=== PATIENT | female | born 1990 | race Caucasian/White ===

== ENCOUNTER 2018-07-08 14:21 | Emergency (ER) | payer BC, OTHER ==
[2018-07-08 14:26] VITALS: BP 121/70; PULSE 60; TEMP 98.8; BMI 31.6
--- NOTE | 2018-07-08 15:18 | PDOC ---
History of Present Illness - General Chief Complaint: Pain Stated Complaint: ABD PAIN Time Seen by Provider: 07/08/18 15:11 - History of Present Illness Initial Comments: 07/08/18 15:17 27 yo F with no significant pmh who p/w vomiting, epigastria abdominal pain. Patient reports acute onset of sharp, fluctuating, non pleuritic, epigastria abdominal pain beginning (07/05/2018). Asscoiated with 2 days of NBNB emesis, now resolved. Endorses nausea, decreased appetite, and decreased PO intake. Abdominal pain worse with supine positioning, and PO intake. Last BM (07/05/18) with absent BPR. Denies abdominal trauma. Patient denies LOPEZ, vision change, palpitations, cough, wheezing, orthopena, PND , leg swelling/pain, F,C, CP, SOB, urinary complaints, hematuria, BPR, diarrhea , lightheadedness, weakness, sensory changes. PMHx: as noted above. Denies h/o endoscopy, chronic NSAID use. Does not f/w GI. Surgical: Denies abdominal surgery ROS: as noted SHx: Denies Etoh, IVDA, tobacco use Allergies: NKDA Past History - Past Medical History Allergies/Adverse Reactions: Allergies Allergy/AdvReac Type Severity Reaction Status Date / Time No Known Allergies Allergy Verified 07/08/18 14:26 Home Medications: Ambulatory Orders Famotidine [Pepcid -] 20 mg PO BID #14 tablet 07/08/18 Ondansetron [Ondansetron Odt] 8 mg PO PRN PRN #14 tab.rapdis 07/08/18 COPD: No - Suicide/Smoking/Psychosocial Hx Smoking History: Never smoked Review of Systems - Review of Systems Comments:: 07/08/18 15:17 GENERAL/CONSTITUTIONAL: No fever or chills. No weakness. HEAD, EYES, EARS, NOSE AND THROAT: No change in vision. No ear pain or discharge. No sore throat. CARDIOVASCULAR: No chest pain or shortness of breath RESPIRATORY: No cough, wheezing, or hemoptysis. GASTROINTESTINAL: + Abodminal pain, nausea, vomiting. No diarrhea. GENITOURINARY: No dysuria, frequency, or change in urination. MUSCULOSKELETAL: No joint or muscle swelling or pain. No neck or back pain. SKIN: No rash NEUROLOGIC: No headache, vertigo, loss of consciousness, or change in strength/ sensation. ENDOCRINE: No increased thirst. No abnormal weight change HEMATOLOGIC/LYMPHATIC: No anemia, easy bleeding, or history of blood clots. ALLERGIC/IMMUNOLOGIC: No hives or skin allergy. *Physical Exam - Vital Signs Last Vital Signs Temp Pulse Resp BP Pulse Ox 98.8 F 60 18 121/70 98 07/08/18 14:23 07/08/18 14:23 07/08/18 14:23 07/08/18 14:23 07/08/18 14:23 - Physical Exam Comments: 07/08/18 15:17 GENERAL: Awake, alert, and fully oriented, in no acute distress HEAD: No signs of trauma, normocephalic, atraumatic EYES: PERRLA, EOMI, sclera anicteric, conjunctiva clear ENT: Hearing grossly normal, nares patent, oropharynx clear without exudates. Moist mucosa NECK: Normal ROM, supple, no lymphadenopathy, JVD, or masses LUNGS: No distress, speaks full sentences, clear to auscultation bilaterally HEART: Regular rate and rhythm, normal S1 and S2, no murmurs, rubs or gallops, peripheral pulses normal and equal bilaterally. ABDOMEN: + Epigastria tpp. Soft, NDS, normoactive bowel sounds. No guarding, no rebound. No masses. Neg CVA ttp. EXTREMITIES : Normal inspection, Normal range of motion, no edema. No clubbing or cyanosis. NEUROLOGICAL: Cranial nerves II through XII grossly intact. Normal speech, normal gait, no focal sensorimotor deficits SKIN: Warm, Dry, normal turgor, no rashes or lesions noted Moderate Sedation - Procedure Monitoring Vital Signs: Procedure Monitoring Vital Signs Temperature 98.8 F 07/08/18 14:23 Pulse Rate 60 07/08/18 14:23 Respiratory Rate 18 07/08/18 14:23 Blood Pressure 121/70 07/08/18 14:23 O2 Sat by Pulse Oximetry (%) 98 07/08/18 14:23 ED Treatment Course - LABORATORY CBC & Chemistry Diagram: 07/08/18 16:00 07/08/18 16:00 Medical Decision Making - Medical Decision Making 07/08/18 15:17 27 yo F with no significant pmh who p/w vomiting, and epigastric abdominal pain beginning 07/05/18. Vitals wnl, AF, A&Ox3. + epigatsria abdominal pain. + Dry mucous membranes. DDx: esophagitis, gastritis, biliary dz. pancreatitis, PUD, gastroenteritis. Will provide antiemetic, analgesic, IVF control, and reassess. ED Course: 07/08/18 15:32 Maloox, Carafate, Tylenol, Famotidine, Zofran, NS 07/08/18 16:53 CBC,CMP: Unremarkable Lipase: Neg Serum Preg: Neg *DC/Admit/Observation/Transfer Diagnosis at time of Disposition: Epigastric abdominal pain - Discharge Dispostion Condition at time of disposition: Stable Decision to Admit order: No - Prescriptions Prescriptions: Famotidine [Pepcid -] 20 mg PO BID #14 tablet Ondansetron [Ondansetron Odt] 8 mg PO PRN PRN #14 tab.rapdis PRN Reason: Nausea - Referrals Referrals: Martina Triplett MD [Primary Care Provider] - Edenilson Kitchen MD [Staff Physician] - - Patient Instructions Printed Discharge Instructions: DI for Abdominal Pain-Adult Additional Instructions: Please return to the emergency department with any new or worsening symptoms or concerns. Please follow up with your primary care physician within 72 hours. Please follow up with gastroenterology within one week. Take Zofran, and Pepcid as needed for symptom relief. - Post Discharge Activity - Attestations Physician Attestion: 07/08/18 15:18 I attest to the information provided in this note.
[2018-07-08] MEDS ORDERED: SODIUM CHLORIDE 1,000 ML IV STA (15:27)
[2018-07-08] MEDS ORDERED: FAMOTIDINE 20 MG/50 ML IVPB 20 MG/50 ML MG IVPB ONE ×2 (15:27→15:50)
[2018-07-08] MEDS ORDERED: MAG HYDROX/AL HYDROX/SIMETH 30 ML UNIT-DOSE CUP PO ONE (15:27)
[2018-07-08] MEDS ORDERED: ACETAMINOPHEN 1000 MG/100 ML VIAL (NON FORMULARY) IVPB ONE (15:27)
[2018-07-08] MEDS ORDERED: SUCRALFATE 1 GM/10 ML UNIT DOSE CUPS PO ONE (15:27)
[2018-07-08] MEDS ORDERED: ONDANSETRON 4 MG/2 ML VIAL IVPB ONE (15:27)
[2018-07-08] MEDS ORDERED: ONDANSETRON 4 MG/2 ML VIAL ONE (15:50)
[2018-07-08] MEDS ORDERED: SUCRALFATE 1 GM TABLET (FP) ONE (15:50)
[2018-07-08] MEDS ORDERED: MAG HYDROX/AL HYDROX/SIMETH 30 ML UNIT-DOSE CUP ONE (15:50)
[2018-07-08] MEDS ORDERED: ACETAMINOPHEN INJECTION 100 ML IVPB ONE (15:50)
[2018-07-08 16:12] LABS: BASO % 0.6 % (0-2.0); EOS % 0.6 % (0-4.5); HEMATOCRIT 36.1 % (32.4-45.2); HEMOGLOBIN 12.4 GM/dL (10.7-15.3); LYMPH % 30.4 % (8-40); MCH 29.4 pg (25.7-33.7); MCHC 34.4 g/dl (32.0-36.0); MEAN CELL VOLUME 85.5 fl (80-96); NEUT % 62.4 % (42.8-82.8); PLATELET COUNT 262 K/MM3 (134-434); RBC 4.23 M/mm3 (3.60-5.2); RDW 13.7 % (11.6-15.6); WHITE BLOOD COUNT 7.1 K/mm3 (4.0-10.0)
[2018-07-08 16:33] LABS: ALBUMIN 4.2 g/dl (3.4-5.0); ALK PHOS 58 U/L (45-117); ANION GAP 8 MMOL/L (8-16); BILIRUBIN,TOTAL 0.4 mg/dL (0.2-1); BLOOD UREA NITROGEN 5 mg/dL (7-18); CALCIUM 8.8 mg/dL (8.5-10.1); CHLORIDE 106 mmol/L (98-107); CO2 24 mmol/L (21-32); CREATININE 0.6 mg/dL (0.55-1.3); GLUCOSE,RANDOM 82 mg/dL (74-106); POTASSIUM 3.8 mmol/L (3.5-5.1); SGOT/AST 11 U/L (15-37); SGPT/ALT 18 U/L (13-61); SODIUM 139 mmol/L (136-145); TOT PROT 7.7 g/dl (6.4-8.2)
--- NOTE | 2018-07-08 18:00 | PDOC ---
Attending Attestation - Resident Resident Name: Philip Trujillo - ED Attending Attestation I have performed the following: I have examined & evaluated the patient, The case was reviewed & discussed with the resident, I agree w/resident's findings & plan, Exceptions are as noted - HPI HPI: 07/08/18 18:00 27 F with no PMH presenting with epigastric pain and vomiting x 3 days. Pt reports onset of pain after eating. Denies any F/C. Endorses a few episodes of NBNB vomiting. Denies lower abdominal pain. Denies vaginal bleeding/discharge. No flank pain. Denies CP/SOB. - Physicial Exam PE: 07/08/18 18:01 GENERAL: Awake, alert, and fully oriented, in no acute distress. HEAD: No signs of trauma EYES: PERRLA, EOMI, sclera anicteric, conjunctiva clear ENT: Auricles normal inspection, hearing grossly normal, nares patent, oropharynx clear without exudates. Moist mucosa NECK: Nontender, no stepoffs, Normal ROM, supple, no lymphadenopathy, JVD, or masses LUNGS: Breath sounds equal, clear to auscultation bilaterally. No wheezes, and no crackles HEART: Regular rate and rhythm, normal S1 and S2, no murmurs, rubs or gallops ABDOMEN: Soft, mild epigastric TTP, normoactive bowel sounds. No guarding, no rebound. No masses EXTREMITIES: Normal range of motion, no edema. No clubbing or cyanosis. No cords, erythema, or tenderness NEUROLOGICAL: Cranial nerves II through XII intact. 5/5 strength and sensation in all extremities, Normal speech, normal gait, normal cerebellar function SKIN: Warm, Dry, normal turgor, no rashes or lesions noted. - Medical Decision Making 07/08/18 18:01 27 F with epigastric pain, N+V. Pt with negative charles's. No lower abdominal tenderness. Suspect gastritis vs PUD. - Labs, lipase - UA, UPT - GI cocktail 07/08/18 18:06 Labs wnl Pt reassessed now with significant improvement with GI meds. Repeat abdominal exam improved. Pt is well appearing, with normal vitals. Clinically stable for DC at this time. I discussed the physical exam findings, ancillary test results and final diagnoses with the patient. I answered all of the patient's questions. The patient was satisfied with the care received and felt comfortable with the discharge plan and treatment plan. The patient agrees to follow up with the primary care physician within 24-72 hours.
== END 2018-07-08 18:04 | disposition home or self-care (01) ==
LOC: JER 14:21
PROC: 3E033GC Introduction of Other Therapeutic Substance into Peripheral Vein, Percutaneous Approach (ICD-10-PCS; principal; 2018-07-08)
PROC: 3E033GC Introduction of Other Therapeutic Substance into Peripheral Vein, Percutaneous Approach (ICD-10-PCS; 2018-07-08)
PROC: 3E033NZ Introduction of Analgesics, Hypnotics, Sedatives into Peripheral Vein, Percutaneous Approach (ICD-10-PCS; 2018-07-08)
DX: R11.2 Nausea with vomiting, unspecified (principal)
CPT/HCPCS: 36415; 80053; 83690; 84703; 85025; 99283-25; J0131; J7030